=== PATIENT | female | born 1975 | race Two or more races ===

== ENCOUNTER 2021-06-20 20:30 | Emergency (ER) | payer BC ==
[2021-06-20] MEDS ORDERED: Albuterol/Ipratropium 3.0-0.5 MG/3 ML Neb Soln NEB ONE (20:34)
--- NOTE | 2021-06-20 20:37 | EDM.PDOC ---
ED HPI GENERAL MEDICAL PROBLEM - General Chief Complaint: Respiratory Problem Stated Complaint: TROUBLE BREATHING Time Seen by Provider: 06/20/21 20:33 Source of Information: Reports: Patient History Limitations: Reports: Language Barrier (latent print examiner tablet used) - History of Present Illness INITIAL COMMENTS - FREE TEXT/NARRATIVE: HISTORY AND PHYSICAL: History of present illness: The patient is a 46-year-old Turkmen-speaking female who presents to the emergency department for complaints of cough with blood tinged sputum for 3 days. All information was obtained using the latent print examiner tablet. Patient states that she has a history of asthma but does not have a rescue inhaler. She states that she has been coughing but denies wheezing. She states that she has not had a fever. Patient states that she is having sweats for the last several weeks. Patient states that she had a similar episode approximately 3 years ago. She does state that at the time she had a chest x-ray which showed she had some back spots on her lungs. The patient states that she been tested for return with this and was found negative. Patient denies any fever, chills, headache, change in vision, syncope or near syncope. Denies any chest pain, back pain, or shortness of breath. Denies any abdominal pain, nausea, vomiting, diarrhea, constipation or dysuria. Has not noted any blood in urine or stool. Patient has been eating and drinking appropriately. Review of systems: As per history of present illness and below otherwise all systems reviewed and negative. Past medical history: As per history of present illness and as reviewed below otherwise noncontributory. Surgical history: As per history of present illness and as reviewed below otherwise noncontributory. Social history: See social history for further information Family history: As per history of present illness and as reviewed below otherwise noncontributory. Physical exam: General: Well developed and well nourished. Alert and orientated x 3. Nontoxic in appearance and in no acute distress. Vital signs are stable and have been reviewed by me. Nursing notes were reviewed. HEENT: Atraumatic, normocephalic, pupils equal and reactive bilaterally, negative for conjunctival pallor or scleral icterus, mucous membranes moist, TMs normal bilaterally, throat clear, neck supple, nontender, trachea midline. No drooling or trismus noted. No meningeal signs. No hot potato voice noted. Lungs: Clear to auscultation bilaterally. Mild wheezes bilaterally lower posterior lobes. No rales, or rhonchi. Chest nontender. Normal work of breathing, no accessory muscles used. Heart: S1S2, regular rate and rhythm without overt murmur, gallops, or rubs. No JVD. No peripheral edema Abdomen: Soft, nondistended, nontender. Normoactive bowel sounds. Negative for masses or costovertebral tenderness. Skin: Intact, warm, dry. No lesions or rashes noted. Hematologic: No petechiae or purpra. Mucosa appropriate color and normal nail bed color and refill. Extremities: Atraumatic, moves all extremities per self without difficulty or deficits, negative for cords or calf pain. Neurovascular unremarkable. Neuro: Awake, alert, oriented. Cranial nerves II through XII unremarkable. Cerebellum unremarkable. Motor and sensory unremarkable throughout. Exam nonfocal. Psychiatric: Mood and affect are appropriate. Normal thought process. Answering questions appropriately. Notes: *This patient was seen and evaluated during the 2019 SARS-CoV-2 novel coronavirus pandemic period. Community viral transmission is ongoing at time of this encounter and the emergency department is operating under pandemic response procedures. As stated above the patient is a 46-year-old female who presents to the emergency department with complaints of wheezing and some difficulty breathing. She states she feels as if her asthma is acting up. The patient has mild wheezing and I have ordered a DuoNeb. I will obtain blood work and a chest x- ray. Post DuoNeb the patient states that she feels as if he is breathing easier. I did not notice any increased work of breath during her examination. I will order an albuterol neb. The patient CBC and CMP are unremarkable. The chest x-ray impression: Cardiovascular and mediastinum: Heart size and vasculature are normal in caliber and appearance. Mediastinum is within normal limits. Lung and pleural space: Lungs are clear. No sign of trait or mass. No sign of pleural effusion. No pneumothorax. Using the latent print examiner tablet I explained to the patient that there was no evidence of black spots on her lungs. I explained that her work-up was essentially normal. As the patient does not have insurance and does not have a primary care doctor she does not have a rescue inhaler. I have given her a rescue inhaler along with a AeroChamber. The nurses using the latent print examiner tablet I have educated the patient on appropriate use. I treated the patient with 60 mg of prednisone in the emergency department. I will prescribe prednisone 20 mg p.o. daily for 5 days. The patient is understandable that she needs to follow-up with her primary care for definitive treatment and per asthma. I explained to the patient that she might need further work-up if she continues to have any blood-tinged sputum. I also explained to the patient that this is most likely a Lela-Padron tear after coughing. The patient is agreeable with this discharge plan. I have talked with the patient about today's findings, in addition to providing specific details for plan of care. Reassessment at the time of disposition demonstrates that the patient is in no acute distress. The patient is stable for discharge, counseling was provided and we discussed in great detail signs and symptoms that would prompt them to return to the Emergency Department. Medication, follow up and supportive care measures were reviewed and discussed. Voices understanding and is agreeable to plan of care. Denies any further questions or concerns at this time. Diagnostics: CBC, BMP, chest x-ray, Therapeutics: DuoNeb, albuterol neb, dental inhaler, AeroChamber Prescription: Prednisone 20 mg p.o. daily for 5 days Impression: Exacerbation of asthma Plan: 1. You were evaluated today on an emergent basis. Your complaints of wheezing and shortness of breath was evaluated and found to be an exacerbation of your asthma. Your chest x-ray was negative. Your blood-tinged sputum is most likely from Lela-Padron tear. This is due to your excessive coughing. We gave you 2 breathing treatments and prednisone 60 mg in the emergency department I will send you home with an albuterol rescue inhaler that you can use as needed for wheezing. You were given an AeroChamber please make sure you use this when using your inhaler. If you are using your inhaler continuously you need to return to the emergency department. Please take your prednisone daily make sure you take all of them. You need to follow-up with a primary care provider to get your asthma under control. You might need a daily asthma inhalation medication. 2. You can alternate Tylenol and ibuprofen as needed for pain and fever management. 3. We encourage you to follow up with your primary care provider and/or recommended specialist in the next few days for re-evaluation and further care/management. 4. If your symptoms should worsen, new symptoms develop or any of the signs and symptoms we discussed should arise please return to the emergency room or call 911 (if needed). Definitive disposition and diagnosis as appropriate pending reevaluation and review of above. - Related Data Allergies Allergy/AdvReac Type Severity Reaction Status Date / Time No Known Allergies Allergy Verified 06/20/21 20:32 Home Meds: Home Meds predniSONE 20 mg PO DAILY 5 Days #5 tab 06/20/21 [Rx] ED ROS GENERAL - Review of Systems Review Of Systems: Comprehensive ROS is negative, except as noted in HPI. ED EXAM, GENERAL - Physical Exam Exam: See Below (See dictation) Course - Vital Signs Last Recorded V/S: Last Vital Signs Temp 97.0 F 06/20/21 20:33 Pulse 88 06/20/21 22:30 Resp 20 06/20/21 22:30 BP 140/80 06/20/21 22:30 Pulse Ox 96 06/20/21 22:30 - Orders/Labs/Meds Labs: Laboratory Tests 06/20/21 06/20/21 Range/Units 21:08 21:08 WBC 10.48 (4.0-11.0) K/uL RBC 4.58 (4.30-5.90) M/uL Hgb 13.3 (12.0-16.0) g/dL Hct 39.9 (36.0-46.0) % MCV 87.1 (80.0-98.0) fL MCH 29.0 (27.0-32.0) pg MCHC 33.3 (31.0-37.0) g/dL RDW Std Deviation 43.3 (28.0-62.0) fl RDW Coeff of Frantz 14 (11.0-15.0) % Plt Count 340 (150-400) K/uL MPV 10.30 (7.40-12.00) fL Neut % (Auto) 54.3 (48.0-80.0) % Lymph % (Auto) 33.4 (16.0-40.0) % [place] % (Auto) 6.5 (0.0-15.0) % Eos % (Auto) 5.5 (0.0-7.0) % Baso % (Auto) 0.3 (0.0-1.5) % Neut # (Auto) 5.7 (1.4-5.7) K/uL Lymph # (Auto) 3.5 H (0.6-2.4) K/uL [place] # (Auto) 0.7 (0.0-0.8) K/uL Eos # (Auto) 0.6 (0.0-0.7) K/uL Baso # (Auto) 0.0 (0.0-0.1) K/uL Nucleated RBC % 0.0 /100WBC Nucleated RBCs # 0 K/uL Sodium 142 (136-145) mmol/L Potassium 3.5 (3.5-5.1) mmol/L Chloride 104 (98-107) mmol/L Carbon Dioxide 26.3 (21.0-32.0) mmol/L BUN 17 (7.0-18.0) mg/dL Creatinine 0.8 (0.6-1.0) mg/dL Est Cr Clr Drug Dosing 61.77 mL/min Estimated GFR (MDRD) > 60.0 ml/min Glucose 125 H (74-106) mg/dL Calcium 9.2 (8.5-10.1) mg/dL Total Bilirubin 0.2 (0.2-1.0) mg/dL AST 23 (15-37) IU/L ALT 50 (14-63) IU/L Alkaline Phosphatase 115 (46-116) U/L Total Protein 8.3 H (6.4-8.2) g/dL Albumin 3.5 (3.4-5.0) g/dL Globulin 4.8 H (2.6-4.0) g/dL Albumin/Globulin Ratio 0.7 L (0.9-1.6) Meds: Medications Discontinued Medications Generic Name Dose Route Start Last Admin Trade Name Freq PRN Reason Stop Dose Admin Albuterol 2.5 mg 06/20/21 21:44 06/20/21 22:07 Albuterol 0.083% 2.5 Mg/3 Ml Neb Soln NEB 06/20/21 21:45 2.5 mg ONETIME ONE Administration Albuterol Confirm 06/20/21 22:31 06/20/21 22:36 Albuterol 8 Gm Inhaler Administered 06/20/21 22:32 1 inh Dose Administration 8 gm INH .STK-MED ONE Albuterol/Ipratropium 3 ml 06/20/21 20:34 06/20/21 20:42 Albuterol/Ipratropium 3.0-0.5 Mg/3 Ml Neb Soln NEB 06/20/21 20:35 3 ml ONETIME ONE Administration Prednisone 60 mg 06/20/21 21:41 06/20/21 22:07 Prednisone 20 Mg Tab PO 06/20/21 21:42 60 mg ONETIME ONE Administration Departure - Departure Time of Disposition: 22:03 Disposition: Home, Self-Care 01 Condition: Good Clinical Impression: Acute asthma - Discharge Information *PRESCRIPTION DRUG MONITORING PROGRAM REVIEWED*: Not Applicable *COPY OF PRESCRIPTION DRUG MONITORING REPORT IN PATIENT FAITH: Not Applicable Prescriptions: predniSONE 20 mg PO DAILY 5 Days #5 tab Instructions: Asthma, Adult Referrals: PCP,None [Primary Care Provider] - Forms: ED Department Discharge Additional Instructions: La siguiente informacin se magnus a los pacientes atendidos en el departamento de emergencias que estn siendo dados de jah a cooper hogar. Esta informacin es para describir luis e opciones para la atencin de seguimiento. Proporcionamos a todos los pacientes atendidos en nuestro departamento de emergencias martha derivacin de seguimiento. La necesidad de seguimiento, as dian el momento y las circunstancias, varan segn los detalles de cooper visita al departamento de emergencias. Si no tiene un mdico de atencin primaria en el personal, le proporcionaremos martha referencia. Siempre le aconsejamos que se ponga en contacto con cooper mdico personal despus de martha visita al servicio de urgencias para informarle de las circunstancias de la visita y para realizar un seguimiento con l y / o la necesidad de cualquier derivacin a un especialista consultor. El departamento de emergencias tambin lo derivar a un especialista cuando sea apropiado. Esta remisin le asegura que tiene la oportunidad de recibir atencin de seguimiento con un especialista. Todas estas medidas se isabela en un esfuerzo por brindarle martha atencin ptima, que incluye cooper seguimiento. En todas las circunstancias, siempre lo alentamos a que se comunique con cooper mdico privado, quien sigue siendo un recurso para coordinar cooper atencin. Cuando llame para recibir atencin de seguimiento, informe al consultorio que long seguimiento es de cooper visita reciente a la nelly de emergencias. Si por alguna razn se le niega el seguimiento, comunquese con el Departamento [facility] Emergencias del [facility] al y solicite hablar con la enfermera a cargo del departamento de emergencias. [facility] - [facility] [address] [place] [address] [id number] [address] [address] Plan: 1. Usted fue evaluado hoy de forma emergente. Se evaluaron luis e quejas de sibilancias y dificultad para respirar y se determin que erick martha exacerbacin de cooper asma. Cooper radiografa de trax fue negativa. Es muy probable que cooper esputo teido de ewelina se deba a martha rotura de Lela-Padron. [place] se debe a cooper tos excesiva. Le administramos 2 tratamientos respiratorios y prednisona 60 mg en el departamento de emergencias. Lo enviar a casa con un inhalador de rescate de albuterol que puede usar segn sea necesario para las sibilancias. Le dieron un AeroChamber, asegrese de usarlo cuando use cooper inhalador. Si usa cooper inhalador de manera continua, debe regresar al departamento de emergencias. [place] cooper prednisona todos los ledezma y asegrese de tomarlos todos. Debe hacer un seguimiento con un proveedor de atencin primaria para controlar cooper asma. Es posible que necesite un medicamento inhalado para el asma todos los ledezma. 2. Puede alternar Tylenol e ibuprofeno segn sea necesario para controlar el dolor y la fiebre. 3. Le recomendamos que beau un seguimiento con cooper proveedor de atencin primaria y / o especialista recomendado en los prximos ledezma para martha reevaluacin y atencin / manejo adicional. 4. Si luis e sntomas empeoran, aparecen nuevos sntomas o surge alguno de los signos y sntomas que discutimos, regrese a la nelly de emergencias o llame al 911 (si es necesario). The following information is given to patients seen in the emergency department who are being discharged to home. This information is to outline your options for follow-up care. We provide all patients seen in our emergency department with a follow-up referral. The need for follow-up, as well as the timing and circumstances, are variable depending upon the specifics of your emergency department visit. If you don't have a primary care physician on staff, we will provide you with a referral. We always advise you to contact your personal physician following an emergency department visit to inform them of the circumstance of the visit and for follow-up with them and/or the need for any referrals to a consulting specialist. The emergency department will also refer you to a specialist when appropriate. This referral assures that you have the opportunity for follow-up care with a specialist. All of these measure are taken in an effort to provide you with optimal care, which includes your follow-up. Under all circumstances we always encourage you to contact your private physician who remains a resource for coordinating your care. When calling for follow-up care, please make the office aware that this follow-up is from your recent emergency room visit. If for any reason you are refused follow-up, please contact the [facility] Emergency Department at and asked to speak to the emergency department charge nurse. [facility] - [facility] [address] [place] [address] [facility] [address] [place] [id number] Plan: 1. You were evaluated today on an emergent basis. Your complaints of wheezing and shortness of breath was evaluated and found to be an exacerbation of your asthma. Your chest x-ray was negative. Your blood-tinged sputum is most likely from Lela-Padron tear. This is due to your excessive coughing. We gave you 2 breathing treatments and prednisone 60 mg in the emergency department I will send you home with an albuterol rescue inhaler that you can use as needed for wheezing. You were given an AeroChamber please make sure you use this when using your inhaler. If you are using your inhaler continuously you need to return to the emergency department. Please take your prednisone daily make sure you take all of them. You need to follow-up with a primary care provider to get your asthma under control. You might need a daily asthma inhalation medication. 2. You can alternate Tylenol and ibuprofen as needed for pain and fever management. 3. We encourage you to follow up with your primary care provider and/or recommended specialist in the next few days for re-evaluation and further care/management. 4. If your symptoms should worsen, new symptoms develop or any of the signs and symptoms we discussed should arise please return to the emergency room or call 911 (if needed).
--- NOTE | 2021-06-20 21:31 | CR ---
Indication: Wheezing and shortness of breath for 3 days Technique: Chest 1 view Comparison: None Findings/Impression: Cardiovascular and mediastinum: Heart size and vasculature are normal in caliber and appearance. Mediastinum is within normal limits. Lungs and pleural space: Lungs are clear. No sign of infiltrate or mass. No sign of pleural effusion. No pneumothorax. Bones and soft tissues: No significant findings. Dictated by Celia Laird MD @ 06/20/2021 9:30:14 PM (Electronically Signed)
[2021-06-20] MEDS ORDERED: predniSONE 20 MG Tab PO ONE (21:41)
[2021-06-20] MEDS ORDERED: Albuterol 0.083% 2.5 MG/3 ML Neb Soln NEB ONE (21:44)
[2021-06-20 21:51] LABS: BLOOD UREA NITROGEN,BUN 17 mg/dL (7.0-18.0); CARBON DIOXIDE,CO2 26.3 mmol/L (21.0-32.0); CHLORIDE,CL 104 mmol/L (98-107); GLUCOSE RANDOM 125 mg/dL (74-106); POTASSIUM,K 3.5 mmol/L (3.5-5.1); SODIUM,NA 142 mmol/L (136-145)
[2021-06-20] MEDS ORDERED: Albuterol 8 GM Inhaler INH ONE (22:31)
== END 2021-06-20 22:35 | disposition home or self-care (01) ==
LOC: MW.ED 20:30
DX: J45.901 Unspecified asthma with (acute) exacerbation (principal); Z79.899 Other long term (current) drug therapy
CPT/HCPCS: 36415; 71046; 80053; 85025; 87040; 94640; 99285; A9270; 99284; J7620-GY